=== PATIENT | male | born 1955 | race Caucasian/White ===

== ENCOUNTER 2024-01-06 21:20 | Emergency (ER) | payer MEDICAID ==
[~2024-01-06] VITALS: Ht 165.1 cm; Wt 132.9 kg
[2024-01-06] MEDS: OXYCODONE/APAP 5-325 MG TABLET PO ONE ×2 (00:15→22:15)
[2024-01-06] MEDS ORDERED: ATOR40TA PO (21:44)
[2024-01-06] MEDS ORDERED: NITR0.4T48 SL (21:44)
[2024-01-06] MEDS ORDERED: CLOP75TA33 PO (21:44)
[2024-01-06] MEDS ORDERED: DOCU100C36 PO (21:44)
[2024-01-06] MEDS ORDERED: METO-356 PO (21:44)
[2024-01-06] MEDS ORDERED: DIPH25TA25 PO (21:44)
[2024-01-06] MEDS ORDERED: LISI-782 PO (21:44)
[2024-01-06] MEDS: NITROGLYCERIN OINT 1 GM PACKET TP ONE (22:15)
[2024-01-06] MEDS: LORAZEPAM 0.5 MG TABLET PO ONE (22:15)
[2024-01-06 22:18] LABS: BASOPHILS # (AUTO) 0.1 K/UL (0.0-0.2); DIFFERENTIAL COMMENT 0; EOSINOPHILS # (AUTO) 0.4 K/uL (0.0-0.7); EOSINOPHILS % (AUTO) 4.7 % (0.0-7.0); HEMATOCRIT 38.2 % (36.7-47.1); HEMOGLOBIN 12.2 g/dL (12.5-16.3); LYMPHOCYTES # (AUTO) 1.9 K/uL (0.8-4.8); MEAN CORPUSCULAR HEMOGLOBIN 25.5 uug (23.8-33.4); MEAN CORPUSCULAR HGB CONC 32 g/dL (32.5-36.3); MEAN CORPUSCULAR VOLUME 79.6 fL (73.0-96.2); MONOCYTES # (AUTO) 0.7 K/uL (0.1-1.30); MONOCYTES % (AUTO) 7.9 % (0.0-11.0); NEUTROPHILS # (AUTO) 5.8 K/uL (1.8-8.9); NEUTROPHILS % (AUTO) 65.4 % (38.5-71.5); PLATELET COUNT (AUTO) 390 K/uL (152-348); RED BLOOD CELL COUNT(AUTO) 4.79 MIL/uL (4.06-5.63); RED CELL DISTRIBUTION WIDTH 16.4 % (12.1-16.2); WHITE BLOOD COUNT (AUTO) 8.9 K/uL (3.6-10.2)
[2024-01-06] MEDS ORDERED: NITROGLYCERIN OINT 1 GM PACKET TP ONE (22:18)
[2024-01-06] MEDS ORDERED: OXYCODONE/APAP 5-325 MG TABLET ONE (22:18)
[2024-01-06] MEDS ORDERED: LORAZEPAM 1 MG TABLET ONE (22:19)
[2024-01-06 22:26] LABS: CALCIUM 9.1 mg/dL (8.5-10.1); CARBON DIOXIDE 26 mmol/L (21-32); CHLORIDE 102 mmol/L (98-107); GLUCOSE 124 mg/dL (74-106); POTASSIUM 4.3 mmol/L (3.5-5.1); SODIUM SERUM 137 mmol/L (136-145); UREA NITROGEN, BLOOD 14 mg/dL (7-18)
[2024-01-06 22:39] LABS: ALANINE AMINOTRANSFERASE 11 U/L (16-63); ALBUMIN 3.1 g/dL (3.4-5.0); ALKALINE PHOSPHATASE 122 U/L (50-136); ASPARTATE AMINOTRANSFERASE 14 U/L (15-37); BILIRUBIN,DIRECT 0.1 mg/dL (0.0-0.2); BILIRUBIN,TOTAL 0.3 mg/dL (0.2-1.0); NT-PRO BNP 53 pg/mL (0-125); TOTAL PROTEIN, SERUM 7.4 g/dL (6.4-8.2)
[2024-01-07] MEDS ORDERED: METOPROLOL TARTRATE 5 MG/5 ML VIAL IVP ONE (00:17)
[2024-01-07] MEDS ORDERED: OXYCODONE/APAP 5-325 MG TABLET ONE ×2 (00:18→04:32)
[2024-01-07] MEDS ORDERED: ENOXAPARIN SODIUM 100 MG/ML DISP.SYRIN SQ ONE (00:18)
[2024-01-07] MEDS: ENOXAPARIN SODIUM 100 MG/ML DISP.SYRIN SQ ONE (00:20)
[2024-01-07 00:27] VITALS: BP 119/93
[2024-01-07] MEDS: METOPROLOL TARTRATE 5 MG/5 ML VIAL IVP ONE (00:27)
[2024-01-07] MEDS ORDERED: MAG HYDROX/AL HYDROX/SIMETH 30 ML LIQUID UDC ONE (00:42)
[2024-01-07] MEDS: MAG HYDROX/AL HYDROX/SIMETH 30 ML LIQUID UDC PO ONE (00:45)
[2024-01-07] MEDS ORDERED: REMEDY ESSENTIAL ZINC PASTE 113 GM TP PRN (01:15)
[2024-01-07] MEDS ORDERED: MAGNESIUM HYDROXIDE 30 ML LIQUID UDC PO PRN (01:15)
[2024-01-07] MEDS ORDERED: ONDANSETRON 4 MG/2 ML VIAL IV PRN (01:15)
[2024-01-07] MEDS ORDERED: NITROGLYCERIN OINT 1 GM PACKET TP PRN ×2 (01:15→05:30)
[2024-01-07] MEDS ORDERED: ACETAMINOPHEN 325 MG TABLET PO PRN (01:15)
[2024-01-07] MEDS: OXYCODONE/APAP 5-325 MG TABLET PO PRN (04:30)
[2024-01-07] MEDS ORDERED: OXYCODONE/APAP 5-325 MG TABLET PO PRN (05:30)
[2024-01-07 07:48] LABS: BASOPHILS # (AUTO) 0.1 K/UL (0.0-0.2); BASOPHILS % (AUTO) 1.2 % (0.0-2.0); EOSINOPHILS # (AUTO) 0.5 K/uL (0.0-0.7); EOSINOPHILS % (AUTO) 6.3 % (0.0-7.0); HEMATOCRIT 37.3 % (36.7-47.1); LYMPHOCYTES # (AUTO) 2.1 K/uL (0.8-4.8); LYMPHOCYTES % (AUTO) 27.9 % (20.5-51.5); MEAN CORPUSCULAR HEMOGLOBIN 25.8 uug (23.8-33.4); MEAN CORPUSCULAR HGB CONC 32 g/dL (32.5-36.3); MEAN CORPUSCULAR VOLUME 80.2 fL (73.0-96.2); MONOCYTES # (AUTO) 0.7 K/uL (0.1-1.30); MONOCYTES % (AUTO) 8.9 % (0.0-11.0); NEUTROPHILS # (AUTO) 4.3 K/uL (1.8-8.9); NEUTROPHILS % (AUTO) 55.7 % (38.5-71.5); PLATELET COUNT (AUTO) 401 K/uL (152-348); RED BLOOD CELL COUNT(AUTO) 4.65 MIL/uL (4.06-5.63); RED CELL DISTRIBUTION WIDTH 15.9 % (12.1-16.2); WHITE BLOOD COUNT (AUTO) 7.7 K/uL (3.6-10.2)
[2024-01-07 08:00] VITALS: O2SAT 99
[2024-01-07 08:08] LABS: DIFFERENTIAL COMMENT 1
[2024-01-07 08:13] LABS: ALANINE AMINOTRANSFERASE 18 U/L (16-63); ALBUMIN 3.2 g/dL (3.4-5.0); ALKALINE PHOSPHATASE 119 U/L (50-136); ASPARTATE AMINOTRANSFERASE 19 U/L (15-37); BILIRUBIN,DIRECT < 0.1 mg/dL (0.0-0.2); BILIRUBIN,TOTAL 0.4 mg/dL (0.2-1.0); CALCIUM 8.7 mg/dL (8.5-10.1); CARBON DIOXIDE 25 mmol/L (21-32); CHLORIDE 100 mmol/L (98-107); CREATININE 0.9 mg/dL (0.6-1.3); MAGNESIUM 2.1 mg/dL (1.8-2.4); PHOSPHOROUS 3.9 mg/dL (2.5-4.9); POTASSIUM 4.3 mmol/L (3.5-5.1); SODIUM SERUM 136 mmol/L (136-145); TOTAL PROTEIN, SERUM 7.5 g/dL (6.4-8.2); UREA NITROGEN, BLOOD 13 mg/dL (7-18)
[2024-01-07 08:26] LABS: GLUCOSE 102 mg/dL (74-106)
[2024-01-07 08:55] LABS: THYROID STIMULATING HORMONE 3.691 mIU/mL (0.358-3.740)
[2024-01-07] MEDS ORDERED: ENOXAPARIN SODIUM 120 MG/0.8 ML SYRINGE SQ SCH (09:00)
== END 2024-01-07 09:10 | disposition left against medical advice (07) ==
LOC: ER 21:23
DX: G89.29 Other chronic pain (principal); R07.89 Other chest pain; I25.2 Old myocardial infarction; E78.00 Pure hypercholesterolemia, unspecified; E66.01 Morbid (severe) obesity due to excess calories; F17.210 Nicotine dependence, cigarettes, uncomplicated; Z68.42 Body mass index [BMI] 45.0-49.9, adult; Z79.899 Other long term (current) drug therapy; Z88.1 Allergy status to other antibiotic agents
CPT/HCPCS: 99285; 71045; 99406; 80076 ×2; 80048 ×2; 83880; 85025 ×2; 85379; 84484 ×3; 36415 ×2; 93005 ×2; 83735; 84100; 84443; 96372; J1650; A4606; A4663; J3490